=== PATIENT | male | born 1955 | race Caucasian/White ===

== ENCOUNTER → 2020-12-11 | Outpatient (CLI) | payer OTHER | LOC: MRI 10:48 | DX: K83.8 Other specified diseases of biliary tract (principal); Z86.19 Personal history of other infectious and parasitic diseases | CPT/HCPCS: 36415; 74181; 87521 ==

== ENCOUNTER → 2021-02-21 | Outpatient (CLI) | payer OTHER | LOC: LAB 01:27 | DX: Z20.822 Contact with and (suspected) exposure to COVID-19 (principal) | CPT/HCPCS: U0002 ==